=== PATIENT | male | born 1935 | race Caucasian/White ===

== ENCOUNTER 2022-05-08 13:02 | Emergency (ER) | payer MEDICARE ==
[~2022-05-08] VITALS: Ht 177.8 cm; Wt 80.6 kg
[2022-05-08] MEDS ORDERED: CARVEDILOL6.25 MG PO (14:48)
[2022-05-08] MEDS ORDERED: LISINOPRIL2.5 MG PO (14:49)
[2022-05-08] MEDS ORDERED: DIGOXIN250 MCG PO (14:49)
--- NOTE | 2022-05-09 16:57 | EKG ---
[facility] [address] [facility] [place] [address] Signed Atrial fibrillation Septal infarct , age undetermined Abnormal ECG No previous ECGs available Confirmed by JARETT ROJAS MD ([id number] on 05/09/2022 4:57:38 PM Electronically Signed By: JARETT ROJAS MD 05/09/22 1657 PATIENT NAME: PILY RIVERA Patricia Electrocardiogram DATE OF : [birth year] PHYSICIAN: JARETT ROJAS MD REPORT #: [id number] REPORT IS CONFIDENTIAL AND NOT TO BE RELEASED WITHOUT AUTHORIZATION
== END 2022-05-08 18:16 | disposition home or self-care (01) ==
LOC: ED 13:02
DX: F03.90 Unspecified dementia, unspecified severity, without behavioral disturbance, psychotic disturbance, mood disturbance, and anxiety (principal)
CPT/HCPCS: 36415; 80053; 80162; 81001; 84484; 85025; 93005; 93010; 99285-25; G0480